=== PATIENT | female | born 1955 | race American Indian/Alaskan Native ===

== ENCOUNTER 2019-03-15 19:32 | Inpatient (IN) | payer MEDICARE ==
[2019-03-15 20:00] LABS: Basophils % (Auto) 0.7 % (0.0-1.8); Eosinophils % (Auto) 0.7 % (0.0-4.3); Lymphocytes # (Auto) 1.8 K/mm3 (1.2-5.4); Lymphocytes % (Auto) 31.5 % (13.4-35.0); Mean Corpuscular HGB Conc 32 % (30-34); Mean Corpuscular Volume 80 fl (79-97); Monocytes # (Auto) 0.3 K/mm3 (0.0-0.8); Monocytes % (Auto) 4.4 % (0.0-7.3); Platelet Count 144 K/mm3 (140-440); Red Blood Count 3.49 M/mm3 (3.65-5.03); Red Cell Distribution Width 15.1 % (13.2-15.2)
--- NOTE | 2019-03-15 20:04 | Emergency Department Report ---
HPI - General Time Seen by Provider: 03/15/19 19:45 - HPI HPI: Room 22 The pt is an adult F p/w a cc of cardiac arrest. Per EMS the pt was a witnessed arrest. EMS was called at 18:51. EMS that transported the pt to the ED arrived on scene at 19:05 to find another engine on scene performing CPR. The pt had been intubated with a ESTHER airway and administered EPI. EMS found the pt in Vfib so she was defib x 1 with 200J and 2 more rounds of EPI administered. +ROSC prior to arrival however pt entered PEA prior to arrival in ED. In ED ESTHER airway was removed and the pt was intubated by myself using 7.0 ETT. ACLS continued with eventual ROSC. Family states pt had been coughing, wheezing and c/o SOB for 2 weeks. Went to PMD today and dxd with Pneumonia and started on "a medicine that begins with Z." Tonight the pt was sitting on the sofa watching TV when she leaned over, began shaking and her tongue turned blue. Family called 911 and began CPR ED Past Medical Hx - Past Medical History Previous Medical History?: No - Surgical History Past Surgical History?: No - Family History Family history: no significant - Social History Smoking Status: Unknown if ever smoked ED Review of Systems ROS: Stated complaint: CARDIAC ARREST Other details as noted in HPI Comment: Unobtainable due to pts medical conditions Physical Exam - Physical Exam Physical Exam: GEN: WD WN Lying on stretcher with CPR in progress HEENT: NCAT, pupils 5mm and NR bilat NECK: Trachea midline, no nuchal rigidity CV: no heart sounds on arrival PULM: no spontaneous r/NT/ND +BS NEURO: GCS 3T SKIN: No diaphoresis MUSC: no evidence of acute injury ED Course - Consultations Consultation #1: 03/15/19 19:22 EKG sent to and d/w Dr Mortensen. Recs cancel CODE STEMI and reassess pt upon arrival, repeat EKG, CT Head 19:34 ED EKG sent to Dr Mortensen- requests further info: Time of 911 call, Time of EMS on scene and if Bystander CPR performed 19:[address] Mortensen: 911 call at 18:51, EMS that transported pt on scene at 19:05, +bystander CPR Pt enters PEA, CPR initiated with ROSC 19:52 Dr Mortensen states coming in to eval - Intubation Time Out Performed: Yes Sedative: none Laryngoscope: Ashley Size: 3 ET Tube Size: 7 Tube Secured Depth (cm): 21 Tube Secured Location: lips Tube Placement Confirmation: visualized tube passing t, equal breath sounds bilat, no breath sounds over epi Patient Tolerated Procedure: no complications Intubation Complications: none ED Medical Decision Making - Lab Data Result diagrams: 03/15/19 19:45 03/15/19 19:45 Laboratory Results - last 72 hr 03/15/19 03/15/19 03/15/19 19:45 19:45 19:45 WBC 5.7 RBC 3.49 L Hgb 9.0 L Hct 28.0 L MCV 80 MCH 26 L MCHC 32 RDW 15.1 Plt Count 144 Lymph % (Auto) 31.5 [place] % (Auto) 4.4 Eos % (Auto) 0.7 Baso % (Auto) 0.7 Lymph # 1.8 [place] # 0.3 Eos # 0.0 Baso # 0.0 Seg Neutrophils % 62.7 Seg Neutrophils # 3.6 PT 15.5 H INR 1.21 H APTT 30.3 Sodium 140 Potassium 2.2 L* Chloride 92.3 L Carbon Dioxide 18 L Anion Gap 32 BUN 28 H Creatinine 3.3 H Estimated GFR 12 BUN/Creatinine Ratio 8 Glucose 359 H POC Glucose Lactic Acid Calcium 9.1 Total Bilirubin 0.30 AST 93 H ALT 63 H Alkaline Phosphatase 94 Total Creatine Kinase 598 H CK-MB (CK-2) 4.5 H CK-MB (CK-2) Rel Index 0.7 Troponin T NT-Pro-B Natriuret Pep Total Protein 6.8 Albumin 3.7 L Albumin/Globulin Ratio 1.2 Triglycerides Cholesterol LDL Cholesterol Direct HDL Cholesterol Cholesterol/HDL Ratio 03/15/19 03/15/19 03/15/19 19:45 19:45 19:48 WBC RBC Hgb Hct MCV MCH MCHC RDW Plt Count Lymph % (Auto) [place] % (Auto) Eos % (Auto) Baso % (Auto) Lymph # [place] # Eos # Baso # Seg Neutrophils % Seg Neutrophils # PT INR APTT Sodium Potassium Chloride Carbon Dioxide Anion Gap BUN Creatinine Estimated GFR BUN/Creatinine Ratio Glucose POC Glucose 256 H Lactic Acid 11.10 H* Calcium Total Bilirubin AST ALT Alkaline Phosphatase Total Creatine Kinase CK-MB (CK-2) CK-MB (CK-2) Rel Index Troponin T 0.046 H NT-Pro-B Natriuret Pep 63526 H Total Protein Albumin Albumin/Globulin Ratio Triglycerides 161 H Cholesterol 225 H LDL Cholesterol Direct 175 H HDL Cholesterol 39 L Cholesterol/HDL Ratio 5.76 - EKG Data -: EKG Interpreted by Me EKG shows normal: sinus rhythm Rate: tachycardia - EKG Data When compared to previous EKG there are: previous EKG unavailable Interpretation: nonspecific ST-T wave love (ST depression v4-6) - Radiology Data Radiology results: report reviewed (CXR, CT Head), image reviewed (CXR, CT Head) interpreted by me: CXR- ETT in good position. RUL haziness [address] [address] XRay Report Signed Patient: TAYLOR SALMERON MR#: [id number] : 1955 Acct:[id number] Age/Sex: 63 / F ADM Date: 03/15/19 Loc: ED Attending Dr: Ordering Physician: YAZMIN BRIAN MD Date of Service: 03/15/19 Procedure(s): XR chest 1V ap Accession Number(s): [id number] cc: YAZMIN BRIAN MD Fluoro Time In Minutes: CHEST 1 VIEW INDICATION: s/p cardiac arrest COMPARISON: None FINDINGS: Support devices: Endotracheal tube is in good position. Nasogastric tube passes in the stomach. Heart: Upper limits of normal Lungs/Pleura: Mild interstitial disease, possibly interstitial pulmonary edema. No significant pleural fluid. IMPRESSION: 1. Borderline cardiomegaly with probable interstitial edema, suggesting mild congestive failure. Signer Name: Juliano Castaneda MD Signed: 03/15/2019 8:14 PM Workstation Name: [id number] Transcribed By: TM Dictated By: Juliano Castaneda MD Electronically Authenticated By: Juliano Castaneda MD Signed Date/Time: 03/15/192013 DD/ 10 TD/TT: [address] [address] Cat Scan Report Signed Patient: TAYLOR SALMERON MR#: [id number] : 1955 Acct:[id number] Age/Sex: 63 / F ADM Date: 03/15/19 Loc: ED Attending Dr: Ordering Physician: YAZMIN BRIAN MD Date of Service: 03/15/19 Procedure(s): CT head/brain wo con Accession Number(s): [id number] cc: YAZMIN BRIAN MD NONENHANCED CT SCAN OF THE HEAD: INDICATION / CLINICAL INFORMATION: 89 years Female; s/p arrest. TECHNIQUE: Routine CT head without contrast. All CT scans at this location are performed using CT dose reduction for ALARA by means of automated exposure control. COMPARISON: None. FINDINGS: BRAIN / INTRACRANIAL CONTENTS: No acute hemorrhage, mass effect, midline shift, hydrocephalus,. Brainstem and cerebellar hemispheres are normal. Basal ganglia are normal. Holliday matter white matter junction appears normal. G raft subtle white matter low attenuation areas are seen probably due to chronic ischemia In these images, dural venous sinuses appear normal. Endotracheal tube and nasogastric tube are in place. CRANIOCERVICAL JUNCTION: No significant abnormality. ORBITS: No significant abnormality of visualized orbits. SINUSES / MASTOIDS: No significant abnormality of the visualized paranasal sinuses or mastoid air cells. ADDITIONAL FINDINGS: Edematous changes are seen in the left side of tongue. IMPRESSION: No space taking lesion or midline shift No CT findings to suggest global cerebral ischemia Signer Name: Elsie Jones MD Signed: 03/15/2019 8:24 PM Workstation Name: [id number] Transcribed By: BS Dictated By: Elsie Aguayo MD Electronically Authenticated By: Elsie Aguayo MD Signed Date/Time: 03/15/192023 DD/ 17 TD/TT: - Differential Diagnosis cardiac arrest, respiratory arrest, ACS, PNA Critical Care Time: Yes Critical care time in (mins) excluding proc time.: 90 Critical care attestation.: If time is entered above; I have spent that time in minutes in the direct care of this critically ill patient, excluding procedure time. ED Disposition Clinical Impression: Cardiac arrest, Hypokalemia, Renal failure, Respiratory arrest Disposition: OP ADMIT IP TO THIS HOSP Is pt being admited?: Yes Does the pt Need Aspirin: No Condition: Serious Referrals: PRIMARY CARE, [Primary Care Provider] - 3-5 Days Time of Disposition: 20:53 (Hospitalist notified)
[2019-03-15 20:10] LABS: INR 1.21 (0.87-1.13)
[2019-03-15 20:11] LABS: Partial Thromboplastin Time 30.3 Sec. (24.2-36.6)
[2019-03-15 20:13] LABS: Creatine Kinase MB 4.5 ng/mL (0.0-4.0)
[2019-03-15 20:15] LABS: Albumin 3.7 g/dL (3.9-5); Calcium 9.1 mg/dL (8.4-10.2)
--- NOTE | 2019-03-15 20:19 | XRay Report ---
CHEST 1 VIEW INDICATION: s/p cardiac arrest COMPARISON: None FINDINGS: Support devices: Endotracheal tube is in good position. Nasogastric tube passes in the stomach. Heart: Upper limits of normal Lungs/Pleura: Mild interstitial disease, possibly interstitial pulmonary edema. No significant pleura l fluid. IMPRESSION: 1. Borderline cardiomegaly with probable interstitial edema, suggesting mild congestive failure. Signer Name: Juliano Castaneda MD Signed: 03/15/2019 8:14 PM Workstation Name: [id number]
--- NOTE | 2019-03-15 20:29 | Cat Scan Report ---
NONENHANCED CT SCAN OF THE HEAD: INDICATION / CLINICAL INFORMATION: 89 years Female; s/p arrest. TECHNIQUE: Routine CT head without contrast. All CT scans at this location are performed using CT dos e reduction for ALARA by means of automated exposure control. COMPARISON: None. FINDINGS: BRAIN / INTRACRANIAL CONTENTS: No acute hemorrhage, mass effect, midline shift, hydrocephalus,. Brai nstem and cerebellar hemispheres are normal. Basal ganglia are normal. Holliday matter white matter junction appears normal. Graft subtle white matter low attenuation areas are seen probably due to chronic ischemia In these images, dural venous sinuses appear normal. Endotracheal tube and nasogastric tube are in place. CRANIOCERVICAL JUNCTION: No significant abnormality. ORBITS: No significant abnormality of visualized orbits. SINUSES / MASTOIDS: No significant abnormality of the visualized paranasal sinuses or mastoid air dominick ls. ADDITIONAL FINDINGS: Edematous changes are seen in the left side of tongue. IMPRESSION: No space taking lesion or midline shift No CT findings to suggest global cerebral ischemia Signer Name: Elsie Jones MD Signed: 03/15/2019 8:24 PM Workstation Name: [id number]
[2019-03-15] MEDS ORDERED: ASPIRIN 325 MG TAB FEEDTUBE ONE (20:41)
[2019-03-15] MEDS ORDERED: MAGNESIUM SULFATE 2 GM/50 ML BAG IV ONE ×2 (21:03→23:13)
[2019-03-15] MEDS: POTASSIUM CHLORIDE 20 MEQ 20 MEQ/100 ML BAG IV SCH ×2 (21:03→22:11)
[2019-03-15 21:05] LABS: Chol/HDL Ratio 5.76 %
--- NOTE | 2019-03-15 21:29 | Consultation ---
History of Present Illness Consult date: 03/15/19 Requesting physician: YAZMIN BRIAN Consult reason: cardiac arrest History of present illness: 63-year-old -Russian female with history of hypertension hyperlipidemia renal failure not on dialysis diabetes for last few weeks been having cold-like symptoms with no sputum production feeling well with decreased appetite. Has been on and off nausea and vomiting. Patient has a history of hypokalemia and is on potassium supplementation. Patient was with son and collapsed and had witnessed arrest with seizure type activity EMS was called questionable bystander CPR by the son. Once EMS arrival after 10 minutes after call patient was found in V. fib and was shocked and spontaneous resuscitation was initiated with pulse back. Patient Route lost pulse and received epinephrine and CPR. Indeed the patient loss pulse and initiate appendectomy and CPR 2. Patient is intubated and nonresponsive. As per the family patient was at [facility] in 2018 with question of a leaky valve. Denies any CHF type symptoms in the past. Nonsmoker. Patient has been treated for questionable pneumonia with azithromyci n and Levaquin as an outpatient Past History Past Medical History: diabetes, hypertension, hyperlipidemia, other (renal insufficiency) Social history: denies: smoking, alcohol abuse, prescription drug abuse Medications and Allergies Allergies Allergy/AdvReac Type Severity Reaction Status Date / Time diphenhydramine Allergy Shortness Verified 03/15/19 20:45 [From Benadryl] of Breath Iodinated Contrast Media Allergy Swelling Verified 03/15/19 20:45 Iodine and Iodide Containing Allergy Swelling Verified 03/15/19 20:45 Produc red dye Allergy Rash Verified 03/15/19 20:45 spearmint Allergy Rash Verified 03/15/19 20:45 strawberry Allergy Rash Verified 03/15/19 20:45 Sulfa (Sulfonamide Allergy Anaphylaxis Verified 03/15/19 20:45 Antibiotics) Active Meds: Active Medications Potassium Chloride (Kcl 20meq/100ml) 20 meq in 100 mls @ 100 mls/hr IV Q1H SPENCER Stop: 03/15/19 22:59 Last Admin: 03/15/19 21:03 Dose: 100 mls/hr Documented by: Magnesium Sulfate (Magnesium Sulfate 2gm/50ml) 2 gm in 50 mls @ 100 mls/hr IV ONCE ONE Stop: 03/15/19 21:32 Review of Systems ROS unobtainable: due to mental status Physical Examination Vital Signs Pulse BP Pulse Ox 72 140/74 100 03/15/19 20:00 03/15/19 20:00 03/15/19 20:00 General appearance: no acute distress HEENT: Positive: Other (pupils not reactive) Neck: Positive: neck supple Cardiac: Positive: Reg Rate and Rhythm Lungs: Positive: clear to auscultation Neuro: Positive: Other (not responsive) Abdomen: Positive: Soft, Active Bowel Sounds Female genitourinary: deferred Extremities: Absent: edema Results 03/15/19 19:45 03/15/19 19:45 Cardiac Enzymes 03/15/19 Range/Units 19:45 AST 93 H (5-40) units/L CK-MB (CK-2) 4.5 H (0.0-4.0) ng/mL Coagulation 03/15/19 Range/Units 19:45 PT 15.5 H (12.2-14.9) Sec. INR 1.21 H (0.87-1.13) APTT 30.3 (24.2-36.6) Sec. Lipids 03/15/19 Range/Units 19:45 Triglycerides 161 H (2-149) mg/dL Cholesterol 225 H (50-199) mg/dL HDL Cholesterol 39 L (40-59) mg/dL Cholesterol/HDL Ratio 5.76 % CBC 03/15/19 Range/Units 19:45 WBC 5.7 (4.5-11.0) K/mm3 RBC 3.49 L (3.65-5.03) M/mm3 Hgb 9.0 L (10.1-14.3) gm/dl Hct 28.0 L (30.3-42.9) % Plt Count 144 (140-440) K/mm3 Lymph # 1.8 (1.2-5.4) K/mm3 [place] # 0.3 (0.0-0.8) K/mm3 Eos # 0.0 (0.0-0.4) K/mm3 Baso # 0.0 (0.0-0.1) K/mm3 Comprehensive Metabolic Panel 03/15/19 Range/Units 19:45 Sodium 140 (137-145) mmol/L Potassium 2.2 L* (3.6-5.0) mmol/L Chloride 92.3 L (98-107) mmol/L Carbon Dioxide 18 L (22-30) mmol/L BUN 28 H (7-17) mg/dL Creatinine 3.3 H (0.7-1.2) mg/dL Glucose 359 H (65-100) mg/dL Calcium 9.1 (8.4-10.2) mg/dL AST 93 H (5-40) units/L ALT 63 H (7-56) units/L Alkaline Phosphatase 94 (35-129) units/L Total Protein 6.8 (6.3-8.2) g/dL Albumin 3.7 L (3.9-5) g/dL EKG interpretations - Telemetry EKG Rhythm: Sinus Rhythm (normal sinus rhythm nonspecific ST-T) Assessment and Plan Patient is intubated vitals are stable EKG does not show an acute myocardial infarction arrhythmia was by caused by hypokalemia patient be magnesium potassium supplementation IV fluids echocardiogram neurology consult and patient be admitted to the ICU. Guarded prognosis discussed this in detail with patient's son and daughter and extended family and possibility of brain damage given the patient's prolonged CPR - Patient Problems (1) Cardiac arrest Current Visit: Yes Status: Acute (2) Hypokalemia Current Visit: Yes Status: Acute (3) Renal failure Current Visit: Yes Status: Chronic Qualifiers: Renal failure chronicity: acute on chronic (4) Respiratory arrest Current Visit: Yes Status: Acute
[2019-03-15] MEDS ORDERED: ONDANSETRON 4 MG/2 ML INJ IV PRN (21:31)
[2019-03-15] MEDS ORDERED: DEXTROSE 50% IN WATER (25GM) 50 ML SYRINGE IV PRN (21:31)
[2019-03-15] MEDS ORDERED: MORPHINE 2 MG/1 ML INJ IV PRN (21:31)
--- NOTE | 2019-03-15 21:35 | Consultation ---
History of Present Illness Consult date: 03/15/19 Requesting physician: YAZMIN BRIAN Consult reason: cardiac arrest History of present illness: 63-year-old -[place] female with history of hypertension hyperlipidemia renal failure not on dialysis diabetes for last few weeks been having cold-like symptoms with no sputum production feeling well with decreased appetite. Has been on and off nausea and vomiting. Patient has a history of hypokalemia and is on potassium supplementation. Patient was with son and collapsed and had witnessed arrest with seizure type activity EMS was called questionable bystander CPR by the son. Once EMS arrival after 10 minutes after call patient was found in V. fib and was shocked and spontaneous resuscitation was initiated with pulse back. Patient Route lost pulse and received epinephrine and CPR. Indeed the patient loss pulse and initiate appendectomy and CPR 2. Patient is intubated and nonresponsive. As per the family patient was at [facility] in 2018 with question of a leaky valve. Denies any CHF type symptoms in the past. Nonsmoker. Patient has been treated for questionable pneumonia with azithromyci n and Levaquin as an outpatient Past History Past Medical History: diabetes, hypertension, hyperlipidemia, other (renal insufficiency) Social history: denies: smoking, alcohol abuse, prescription drug abuse Medications and Allergies Allergies Allergy/AdvReac Type Severity Reaction Status Date / Time diphenhydramine Allergy Shortness Verified 03/15/19 20:45 [From Benadryl] of Breath Iodinated Contrast Media Allergy Swelling Verified 03/15/19 20:45 Iodine and Iodide Containing Allergy Swelling Verified 03/15/19 20:45 Produc red dye Allergy Rash Verified 03/15/19 20:45 spearmint Allergy Rash Verified 03/15/19 20:45 strawberry Allergy Rash Verified 03/15/19 20:45 Sulfa (Sulfonamide Allergy Anaphylaxis Verified 03/15/19 20:45 Antibiotics) Active Meds: Active Medications Potassium Chloride (Kcl 20meq/100ml) 20 meq in 100 mls @ 100 mls/hr IV Q1H SPENCER Stop: 03/15/19 22:59 Last Admin: 03/15/19 21:03 Dose: 100 mls/hr Documented by: Review of Systems ROS unobtainable: due to mental status Physical Examination Vital Signs Pulse BP Pulse Ox 72 140/74 100 03/15/19 20:00 03/15/19 20:00 03/15/19 20:00 General appearance: no acute distress, other HEENT: Positive: Other (pupils are not reactive) Neck: Positive: neck supple Cardiac: Positive: Reg Rate and Rhythm Lungs: Positive: Decreased Breath Sounds Neuro: Positive: Other (non-responsive) Abdomen: Positive: Soft Female genitourinary: deferred Extremities: Absent: normal Results 03/15/19 19:45 03/15/19 19:45 Cardiac Enzymes 03/15/19 Range/Units 19:45 AST 93 H (5-40) units/L CK-MB (CK-2) 4.5 H (0.0-4.0) ng/mL Coagulation 03/15/19 Range/Units 19:45 PT 15.5 H (12.2-14.9) Sec. INR 1.21 H (0.87-1.13) APTT 30.3 (24.2-36.6) Sec. Lipids 03/15/19 Range/Units 19:45 Triglycerides 161 H (2-149) mg/dL Cholesterol 225 H (50-199) mg/dL HDL Cholesterol 39 L (40-59) mg/dL Cholesterol/HDL Ratio 5.76 % CBC 03/15/19 Range/Units 19:45 WBC 5.7 (4.5-11.0) K/mm3 RBC 3.49 L (3.65-5.03) M/mm3 Hgb 9.0 L (10.1-14.3) gm/dl Hct 28.0 L (30.3-42.9) % Plt Count 144 (140-440) K/mm3 Lymph # 1.8 (1.2-5.4) K/mm3 [place] # 0.3 (0.0-0.8) K/mm3 Eos # 0.0 (0.0-0.4) K/mm3 Baso # 0.0 (0.0-0.1) K/mm3 Comprehensive Metabolic Panel 03/15/19 Range/Units 19:45 Sodium 140 (137-145) mmol/L Potassium 2.2 L* (3.6-5.0) mmol/L Chloride 92.3 L (98-107) mmol/L Carbon Dioxide 18 L (22-30) mmol/L BUN 28 H (7-17) mg/dL Creatinine 3.3 H (0.7-1.2) mg/dL Glucose 359 H (65-100) mg/dL Calcium 9.1 (8.4-10.2) mg/dL AST 93 H (5-40) units/L ALT 63 H (7-56) units/L Alkaline Phosphatase 94 (35-129) units/L Total Protein 6.8 (6.3-8.2) g/dL Albumin 3.7 L (3.9-5) g/dL EKG interpretations - Telemetry EKG Rhythm: Sinus Rhythm (normal sinus rhythm nonspecific ST-T wave) Assessment and Plan Patient should have potassium and magnesium supplementation discussed in detail with patient's family about prolonged CPR multiple and possibility of rain d amage. Supportive care echocardiogram for LV function - Patient Problems (1) Cardiac arrest Current Visit: Yes Status: Acute (2) Hypokalemia Current Visit: Yes Status: Acute (3) Respiratory arrest Current Visit: Yes Status: Acute (4) Renal failure Current Visit: Yes Status: Chronic Qualifiers: Renal failure chronicity: acute on chronic
[2019-03-15] MEDS ORDERED: SODIUM CHLORIDE 0.9% 1000 ML 1,000 ML IV SCH (21:45)
[2019-03-15 21:46] LABS: ABG Base Excess 0.9 mmol/L (-2.0-3.0); ABG HCO3 25.4 mmol/L (20.0-26.0); ABG Methemoglobin 0.6 % (0.0-1.5); ABG Oxygen Saturation 99.4 % (95.0-99.0); ABG PCO2 39.8 mm Hg; ABG PH 7.422 pH Units (7.350-7.450); ABG PO2 258.5 mm Hg (80.0-90.0)
--- NOTE | 2019-03-15 21:48 | History and Physical Report ---
History of Present Illness Date of examination: 03/15/19 Date of admission: 03/15/2019 Chief complaint: Cardiac arrest History of present illness: 63-year-old -[place] female with known history of hypertension, hyperlipidemia, and chronic kidney disease and brought into the emergency room today. She has been complaining of flulike symptoms over the past few days and also had a decreased appetite. Patient was said to have had a cardiac arrest and has some seizure-like activity today. EMS was called and a bystander was said to status CPR prior to arrival of EMS. Patient was found to be in V. fib and patient had spontaneous resuscitation after being shocked. She lost a pulse and received epinephrine for the CPR was done prior to arrival in the emergency room. Upon arrival in the emergency room she was found to be nonresponsive and she had to be resuscitated again and intubated. According to family members patient had visited her primary care physician recently and was on treatment for questionable pneumonia with azithromycin and Levaquin. There has been no history of fever or chills, no chest pain, no headache or dizziness, no hematuria or dysuria. Past History Past Medical History: diabetes, hypertension, hyperlipidemia, other (renal insufficiency) Social history: denies: smoking, alcohol abuse, prescription drug abuse Medications and Allergies Allergies Allergy/AdvReac Type Severity Reaction Status Date / Time diphenhydramine Allergy Shortness Verified 03/15/19 20:45 [From Benadryl] of Breath Iodinated Contrast Media Allergy Swelling Verified 03/15/19 20:45 Iodine and Iodide Containing Allergy Swelling Verified 03/15/19 20:45 Produc red dye Allergy Rash Verified 03/15/19 20:45 spearmint Allergy Rash Verified 03/15/19 20:45 strawberry Allergy Rash Verified 03/15/19 20:45 Sulfa (Sulfonamide Allergy Anaphylaxis Verified 03/15/19 20:45 Antibiotics) Home Medications Medication Instructions Recorded Confirmed Last Taken Type Azithromycin 250 mg PO DAILY 03/16/19 03/16/19 Unknown History Colchicine 0.6 mg PO BID 03/16/19 03/16/19 Unknown History Levofloxacin 750 mg PO DAILY 03/16/19 03/16/19 Unknown History NIFEdipine 90 mg PO HS 03/16/19 03/16/19 Unknown History Pantoprazole Sodium 40 tab PO DAILY 03/16/19 03/16/19 Unknown History Potassium Chloride 20 meq PO BID 03/16/19 03/16/19 Unknown History allopurinoL 100 mg PO DAILY 03/16/19 03/16/19 Unknown History atenoloL [Tenormin] 1 tab PO DAILY 03/16/19 03/16/19 Unknown History Active Meds: Active Medications Dextrose (D50w (25gm) Syringe) 50 ml IV Q30MIN PRN; Protocol PRN Reason: Hypoglycemia Heparin Sodium (Porcine) (Heparin) 5,000 unit SUB-Q Q8HR SPENCER Potassium Chloride (Kcl 20meq/100ml) 20 meq in 100 mls @ 100 mls/hr IV Q1H SPENCER Stop: 03/15/19 22:59 Last Admin: 03/15/19 21:03 Dose: 100 mls/hr Documented by: Sodium Chloride (Nacl 0.9% 1000 Ml) 1,000 mls @ 75 mls/hr IV DIRECT SPENCER Cefepime HCl (Cefepime/Ns 2 Gm/100 Ml) 2 gm in 100 mls @ 200 mls/hr IV Q8HR SPENCER; Protocol Insulin Human Lispro (Humalog) 0 unit SUB-Q ACHS SPENCER; Protocol Morphine Sulfate (Morphine) 2 mg IV Q4H PRN PRN Reason: Pain, Moderate (4-6) Ondansetron HCl (Zofran) 4 mg IV Q8H PRN PRN Reason: Nausea And Vomiting Sodium Chloride (Sodium Chloride Flush Syringe 10 Ml) 10 ml IV BID SPENCER Sodium Chloride (Sodium Chloride Flush Syringe 10 Ml) 10 ml IV PRN PRN PRN Reason: LINE FLUSH Review of Systems ROS unobtainable: due to endotracheal tube Exam - Constitutional Vitals: Temp Pulse Resp BP Pulse Ox 72 140/74 100 03/15/19 20:00 03/15/19 20:00 03/15/19 20:00 General appearance: Present: mild distress, well-nourished - EENT Eyes: Present: PERRL, EOM intact ENT: hearing intact, clear oral mucosa, dentition normal - Neck Neck: Present: supple, normal ROM - Respiratory Respiratory: bilateral: diminished - Cardiovascular Heart Sounds: Present: S1 & S2 - Extremities Extremities: no ischemia, pulses intact, pulses symmetrical, No edema, Full ROM Peripheral Pulses: within normal limits - Abdominal General gastrointestinal: Present: soft, non-tender, non-distended - Integumentary Integumentary: Present: clear, warm, dry - Musculoskeletal Musculoskeletal: strength equal bilaterally - Psychiatric Psychiatric: cooperative - Neurologic Neurologic: CNII-XII intact, moves all extremities, other (Patient currently intubated) Results - Labs CBC & Chem 7: 03/15/19 19:45 03/15/19 19:45 Labs: Abnormal lab results 03/15/19 03/15/19 03/15/19 Range/Units 19:45 19:45 19:45 RBC 3.49 L (3.65-5.03) M/mm3 Hgb 9.0 L (10.1-14.3) gm/dl Hct 28.0 L (30.3-42.9) % MCH 26 L (28-32) pg PT 15.5 H (12.2-14.9) Sec. INR 1.21 H (0.87-1.13) Potassium 2.2 L* (3.6-5.0) mmol/L Chloride 92.3 L (98-107) mmol/L Carbon Dioxide 18 L (22-30) mmol/L BUN 28 H (7-17) mg/dL Creatinine 3.3 H (0.7-1.2) mg/dL Glucose 359 H (65-100) mg/dL POC Glucose (70-105) Lactic Acid (0.7-2.0) mmol/L AST 93 H (5-40) units/L ALT 63 H (7-56) units/L Total Creatine Kinase 598 H (30-135) units/L CK-MB (CK-2) 4.5 H (0.0-4.0) ng/mL Troponin T (0.00-0.029) ng/mL NT-Pro-B Natriuret Pep (0-900) pg/mL Albumin 3.7 L (3.9-5) g/dL Triglycerides (2-149) mg/dL Cholesterol (50-199) mg/dL LDL Cholesterol Direct (50-130) mg/dL HDL Cholesterol (40-59) mg/dL 03/15/19 03/15/19 03/15/19 Range/Units 19:45 19:45 19:48 RBC (3.65-5.03) M/mm3 Hgb (10.1-14.3) gm/dl Hct (30.3-42.9) % MCH (28-32) pg PT (12.2-14.9) Sec. INR (0.87-1.13) Potassium (3.6-5.0) mmol/L Chloride (98-107) mmol/L Carbon Dioxide (22-30) mmol/L BUN (7-17) mg/dL Creatinine (0.7-1.2) mg/dL Glucose (65-100) mg/dL POC Glucose 256 H (70-105) Lactic Acid 11.10 H* (0.7-2.0) mmol/L AST (5-40) units/L ALT (7-56) units/L Total Creatine Kinase (30-135) units/L CK-MB (CK-2) (0.0-4.0) ng/mL Troponin T 0.046 H (0.00-0.029) ng/mL NT-Pro-B Natriuret Pep 46538 H (0-900) pg/mL Albumin (3.9-5) g/dL Triglycerides 161 H (2-149) mg/dL Cholesterol 225 H (50-199) mg/dL LDL Cholesterol Direct 175 H (50-130) mg/dL HDL Cholesterol 39 L (40-59) mg/dL 03/15/19 Range/Units 20:45 RBC (3.65-5.03) M/mm3 Hgb (10.1-14.3) gm/dl Hct (30.3-42.9) % MCH (28-32) pg PT (12.2-14.9) Sec. INR (0.87-1.13) Potassium (3.6-5.0) mmol/L Chloride (98-107) mmol/L Carbon Dioxide (22-30) mmol/L BUN (7-17) mg/dL Creatinine (0.7-1.2) mg/dL Glucose (65-100) mg/dL POC Glucose (70-105) Lactic Acid 6.40 H* (0.7-2.0) mmol/L AST (5-40) units/L ALT (7-56) units/L Total Creatine Kinase (30-135) units/L CK-MB (CK-2) (0.0-4.0) ng/mL Troponin T (0.00-0.029) ng/mL NT-Pro-B Natriuret Pep (0-900) pg/mL Albumin (3.9-5) g/dL Triglycerides (2-149) mg/dL Cholesterol (50-199) mg/dL LDL Cholesterol Direct (50-130) mg/dL HDL Cholesterol (40-59) mg/dL Assessment and Plan - Patient Problems (1) Cardiac arrest Current Visit: Yes Status: Acute Plan to address problem: Etiology is unclear. Patient has been successfully resuscitated and intubated. She was found to be hypokalemic and potassium has been repleted. Director Of Individual Giving has been consulted and she is currently being followed by cardiology team. (2) Hypokalemia Current Visit: Yes Status: Acute Plan to address problem: Potassium will be repleted and will monitor chemistry. (3) Respiratory arrest Current Visit: Yes Status: Acute Plan to address problem: Patient has been successfully intubated and sedated. We will place consult to internal recruiter for further evaluation and recommendation. (4) Renal failure Current Visit: Yes Status: Chronic Qualifiers: Renal failure chronicity: acute on chronic Plan to address problem: We will place patient on gentle IV fluid hydration. We will also place a consult to nephrology for further evaluation and recommendation. No baseline BUN/creatinine to compare. (5) Diabetes mellitus Current Visit: Yes Status: Acute Plan to address problem: We will monitor Accu-Cheks. (6) DVT prophylaxis Current Visit: Yes Status: Acute Plan to address problem: Patient placed on subcutaneous heparin. (7) Full code status Current Visit: Yes Status: Acute
[2019-03-15] MEDS ORDERED: HEPARIN 5,000 UNIT/1 ML VIAL SUB-Q SCH (22:00)
[2019-03-15] MEDS ORDERED: VANCOMYCIN PHARMACY TO DOSE IV SCH (22:00)
[2019-03-15] MEDS ORDERED: CEFEPIME/NS 2 GM/100 ML 2 GM/100 ML BAG IV SCH ×2 (22:00)
[2019-03-15] MEDS ORDERED: INSULIN LISPRO 100 UNIT/ML SUB-Q SCH (22:00)
[2019-03-15] MEDS ORDERED: VANCOMYCIN 2,000 MG in SODIUM CHLORIDE 0.9% 500 ML 500 ML IV ONE (22:30)
[2019-03-15] MEDS ORDERED: LORazepam 2 MG/ML VIAL IV ONE (22:45)
[2019-03-15] MEDS ORDERED: CEFEPIME/NS 2 GM/100 ML 2 GM/100 ML BAG IV ONE (22:50)
[2019-03-15] MEDS ORDERED: HEPARIN 5,000 UNIT/1 ML VIAL ONE (23:14)
[2019-03-15] MEDS ORDERED: LORazepam 2 MG/ML VIAL ONE (23:15)
[2019-03-15] MEDS ORDERED: INSULIN LISPRO 100 UNIT/ML SUB-Q ONE (23:16)
[2019-03-15] MEDS ORDERED: MINERAL OIL/PETROLATUM, WHITE OPHTH OINT 3.5 GM OU PRN (23:21)
[2019-03-15] MEDS ORDERED: MIDAZOLAM 2 MG/2 ML INJ IV PRN (23:21)
[2019-03-15] MEDS ORDERED: LIP THERAPY VASELINE TP PRN (23:21)
[2019-03-15] MEDS ORDERED: MIDAZOLAM 100 MG in SODIUM CHLORIDE 0.9% 80 ML IV SCH (23:45)
[2019-03-16 01:22] LABS: Bacteria,Urine 1+ /HPF (Negative); Bilirubin,Urine NEG (Negative); Blood,Urine MOD (Negative); Color,Urine Yellow (Yellow); Mucus,Urine FEW /HPF; Urobilinogen,Urine < 2.0 mg/dL (<2.0)
[2019-03-16 04:06] LABS: ABG Base Excess -4.1 mmol/L (-2.0-3.0); ABG Methemoglobin 0.4 % (0.0-1.5); ABG Oxygen Saturation 99.1 % (95.0-99.0); ABG PCO2 24.1 mm Hg; ABG PH 7.49 pH Units (7.350-7.450); ABG PO2 168.6 mm Hg (80.0-90.0)
[2019-03-16] MEDS ORDERED: SODIUM CHLORIDE 0.9% 1000 ML 1,000 ML ONE (04:20)
--- NOTE | 2019-03-16 05:11 | XRay Report ---
CHEST - 1 VIEW INDICATION: follow up respiratory failure COMPARISON: Yesterday FINDINGS: Support devices: Stable support device positioning. Heart: Stable cardiomediastinal silhouette. Lungs/pleura: Persistent patchy airspace disease greatest in the right upper lobe. Additional findings: None. IMPRESSION: Unchanged exam. Signer Name: Jesus Jarquin MD Signed: 03/16/2019 5:07 AM Workstation Name: [id number]
[2019-03-16 05:47] LABS: INR 1.34 (0.87-1.13)
[2019-03-16 05:48] LABS: Partial Thromboplastin Time 28.1 Sec. (24.2-36.6)
[2019-03-16 06:01] LABS: Calcium 9.3 mg/dL (8.4-10.2)
[2019-03-16] MEDS ORDERED: SODIUM CHLORIDE 0.9% 1000 ML 1,000 ML IV SCH (07:30)
[2019-03-16] MEDS ORDERED: ACETAMINOPHEN 650 MG RECT SUPP PR ONE ×2 (07:30→07:50)
[2019-03-16] MEDS ORDERED: DEXTROSE 50% IN WATER (25GM) 50 ML SYRINGE IV ONE ×2 (08:00→12:22)
[2019-03-16] MEDS ORDERED: DOPamine/D5W 800 MG/250 ML 800 MG/250 ML BAG IV SCH (08:00)
[2019-03-16] MEDS ORDERED: SODIUM BICARBONATE 150 MEQ in DEXTROSE 5% IN WATER 1,000 ML IV SCH (09:00)
[2019-03-16 09:35] VITALS: BP 58/25
[2019-03-16] MEDS ORDERED: SODIUM BICARBONATE 325 MG TAB FEEDTUBE PRN (09:36)
[2019-03-16] MEDS ORDERED: SIMPLE SYRUP 15 ML FEEDTUBE PRN ×2 (09:36)
[2019-03-16] MEDS ORDERED: LIPASE 10,500/PROTEASE 25,000/AMYLASE 43,750 (UNITS) DR CAP FEEDTUBE PRN (09:36)
--- NOTE | 2019-03-16 12:19 | Death Note ---
Note Date of : 03/16/19 Time of : 10:49 Time Pronounced: 10:49
--- NOTE | 2019-03-16 12:19 | Event Note ---
63-year-old woman who presents to the hospital after she arrested in the EMS van. And she then arrested again in the ER. Of note it is stated that the patient was not responsive, she was having aphasia, and appeared not to be moving 1 side of her body and that was wider family called EMS. Since being in the hospital the patient has been coded x1, intubated, she did not require sed ation. And her vitals have been stable for about 12 hours. The patient and had hypotension, despite getting pressors and IV fluids, hypotension was worsening. And patient became pulseless. CPR performed, achieved Rosc General.: Appears unwell HEENT: Moist mucous membranes, extraocular muscles intact, no lymphadenopathy Neck: supple Cardiac: S1-S2 heard Lungs: clear to auscultation bilaterally Abdomen: soft , nontender, nondistended, bowel sounds positive Extremities: no edema clubbing or cyanosis Skin: no rash or lesions Neurologic: Not responsive, fasciculations noted in the lateral muscles in her lower extremities, decerebrate posturing noted Psych: Not responsive Plan; hypoglycemia noted, patient given dextrose Patient given pressors and IV fluids. She has received broad-spectrum antibiotics. PICC line requested. -Patient has coded for second time this morning, had arrested 2 times yesterday. Discussed with family, they want to continue aggressive management, the a waiting for the family members to come. They understand that her prognosis is poor. Advanced care planning performed for 30 minutes Critical care time 35 minutes
--- NOTE | 2019-03-16 12:19 | Death Summary ---
Summary - Providers Consults: 03/15/19 21:24 Consult to Physician [CONS] Stat Comment: Consulting Provider: ODALIS ROSARIO Physician Instructions: Reason For Exam: cardiac arrest 03/15/19 21:31 Consult to Physician [CONS] Routine Comment: Consulting Provider: CLINT ALDANA Physician Instructions: Reason For Exam: RENAL FAILURE 03/15/19 21:32 Consult to Dietitian/Nutrition [CONS] Routine Physician Instructions: Reason For Exam: Reason for Consult: Write/Manage Tube Feeding Consult to Physician [CONS] Routine Comment: Consulting Provider: MALIK REAL Physician Instructions: Reason For Exam: CARDIAC ARREST/RESP.ARREST. INTUBATED 03/16/19 03:36 Consult to Physician [CONS] Routine Comment: Consulting Provider: FABRICIO VALLES Physician Instructions: Reason For Exam: ?? seizure 03/16/19 07:28 Consult to PICC Line RN [CONS] Stat Reason For Exam: hypotenstion Type Line:: PICC Attending: NIELS MCKEON MD - summary Date of admission: 03/15/19 21:32 Date of : 03/16/19 Significant findings: 63-year-old woman who presents to the hospital after she arrested in the EMS van. And she then arrested again in the ER. Of note it is stated that the patient was not responsive, she was having aphasia, and appeared not to be moving 1 side of her body and that was wider family called EMS. Since being in the hospital the patient has been coded x1, intubated, she did not require sedation. And her vitals have been stable for about 12 hours. The patient and had hypotension, despite getting pressors and IV fluids, hypotension was worsening. And patient became pulseless. -The patient received CPR more than 7 times. She was noted to be hypoglycemic and received dextrose. She was given IV fluids and pressors for low blood pressure. Electrolytes were repleted. She was noted to have acute kidney failure which was thought to be due to ATN, she received IV fluids and pressors. -Despite all heroic efforts the patient did not recover despite getting CPR greater than 7 times. After family meeting. The family understood that the prognosis was poor and patient was no longer responsive, ID did elected to make her DNR. She was continued on ventilator support, pressors and IV fluids until she . Given the presentation at the family gave, stating that the patient could not move 1 side of her body became unresponsive and then became pulseless afterwards. It is quite possible the patient had a massive stroke. I advised the family that if they want a precise diagnosis/cause of that they can request an autopsy. Diagnosis Distributive shock Acute metabolic encephalopathy Anoxic encephalopathy Suspected stroke Hypoglycemia Acute kidney injury due to ATN
--- NOTE | 2019-03-16 12:19 | Event Note ---
63-year-old woman who presents to the hospital after she arrested in the EMS van. And she then arrested again in the ER. Of note it is stated that the patient was not responsive, she was having aphasia, and appeared not to be moving 1 side of her body and that was wider family called EMS. Since being in the hospital the patient has been coded x1, intubated, she did not require sed ation. And her vitals have been stable for about 12 hours. The patient and had hypotension, despite getting pressors and IV fluids, hypotension was worsening. And patient became pulseless. CPR performed, achieved Rosc General.: Appears unwell HEENT: Moist mucous membranes, extraocular muscles intact, no lymphadenopathy Neck: supple Cardiac: S1-S2 heard Lungs: clear to auscultation bilaterally Abdomen: soft , nontender, nondistended, bowel sounds positive Extremities: no edema clubbing or cyanosis Skin: no rash or lesions Neurologic: Not responsive, fasciculations noted in the lateral muscles in her lower extremities, decerebrate posturing noted Psych: Not responsive Plan; hypoglycemia noted, patient given dextrose Patient given pressors and IV fluids. She has received broad-spectrum antibiotics. PICC line requested. -Patient has coded for third time this morning, had arrested 2times yesterday. Discussed with family, they want to continue aggressive management, the awaiting for the family members to come. They understand that her prognosis is poor. Advanced care planning performed for 30 minutes Critical care time 35 minutes
--- NOTE | 2019-03-16 12:19 | Event Note ---
63-year-old woman who presents to the hospital after she arrested in the EMS van. And she then arrested again in the ER. Of note it is stated that the patient was not responsive, she was having aphasia, and appeared not to be moving 1 side of her body and that was wider family called EMS. Since being in the hospital the patient has been coded x1, intubated, she did not require sed ation. And her vitals have been stable for about 12 hours. The patient and had hypotension, despite getting pressors and IV fluids, hypotension was worsening. And patient became pulseless. CPR performed, achieved Rosc General.: Appears unwell HEENT: Moist mucous membranes, extraocular muscles intact, no lymphadenopathy Neck: supple Cardiac: S1-S2 heard Lungs: clear to auscultation bilaterally Abdomen: soft , nontender, nondistended, bowel sounds positive Extremities: no edema clubbing or cyanosis Skin: no rash or lesions Neurologic: Not responsive, fasciculations noted in the lateral muscles in her lower extremities, decerebrate posturing noted Psych: Not responsive Plan; hypoglycemia noted, patient given dextrose Patient given pressors and IV fluids. She has received broad-spectrum antibiotics. PICC line requested. -Patient has coded for fourth time this morning, had arrested 2 times yesterday. Discussed with family, they now want to make patient DNR. They understand that her prognosis is poor. Advanced care planning performed for 30 minutes Critical care time 35 minutes
[2019-03-16] MEDS ORDERED: EPINEPHrine 1:10,000 1 MG/10 ML SYRINGE ONE (12:22)
== END 2019-03-16 13:20 | DRG 91 ==
LOC: EDBD → ED 19:32 → CC1 21:32
PROVIDERS: ADMIT Internal Medicine Geriatric Medicine; ATTEND Internal Medicine
PROC: 5A12012 Performance of Cardiac Output, Single, Manual (ICD-10-PCS; principal; 2019-03-15)
PROC: 5A1935Z Respiratory Ventilation, Less than 24 Consecutive Hours (ICD-10-PCS; 2019-03-15)
PROC: 0BH17EZ Insertion of Endotracheal Airway into Trachea, Via Natural or Artificial Opening (ICD-10-PCS; 2019-03-15)
PROC: 4A033R1 Measurement of Arterial Saturation, Peripheral, Percutaneous Approach (ICD-10-PCS; 2019-03-15)
DX: G93.1 Anoxic brain damage, not elsewhere classified (principal); N17.0 Acute kidney failure with tubular necrosis; G93.41 Metabolic encephalopathy; I46.9 Cardiac arrest, cause unspecified; E87.6 Hypokalemia; E78.5 Hyperlipidemia, unspecified; Z90.49 Acquired absence of other specified parts of digestive tract; Z88.2 Allergy status to sulfonamides; Z88.8 Allergy status to other drugs, medicaments and biological substances; Z91.041 Radiographic dye allergy status; N18.9 Chronic kidney disease, unspecified; E11.22 Type 2 diabetes mellitus with diabetic chronic kidney disease; I12.9 Hypertensive chronic kidney disease with stage 1 through stage 4 chronic kidney disease, or unspecified chronic kidney disease; E11.649 Type 2 diabetes mellitus with hypoglycemia without coma; Z66 Do not resuscitate; R57.8 Other shock; Z79.84 Long term (current) use of oral hypoglycemic drugs
CPT/HCPCS: 31500; 36415; 70450; 71045; 80048; 80053; 80061; 81001; 82140; 82550; 82553; 82803; 82962; 83880; 84484; 85025; 85610; 85730; 87040; 93005; 93010; 94002; 94003; 99292; G0378; J0171; J0692; J1265; J1644; J1815; J2060; J2250; J3370; J3475; J3480; J7030; J7040; J7070